=== PATIENT | female | born 1985 | race Caucasian/White ===

== ENCOUNTER 2018-12-30 05:03 | Inpatient (IN) | payer OTHER ==
[~2018-12-30] VITALS: Ht 165.1 cm; Wt 72.6 kg
[~2018-12-30 05:03] MED LIST: PRENATAL TABLE1 EAC1 PO
[2018-12-30] MEDS ORDERED: IRON236 MG PO (05:26)
== END 2019-01-01 11:52 | disposition home or self-care (01) | DRG 807 ==
LOC: LDR 05:03 → SURG-SUITE 09:40 → OB/GYN 01-16 09:32
PROVIDERS: ADMIT Obstetrics & Gynecology Maternal & Fetal Medicine
PROC: 10E0XZZ Delivery of Products of Conception, External Approach (ICD-10-PCS; principal; 2018-12-30)
PROC: 0HQ9XZZ Repair Perineum Skin, External Approach (ICD-10-PCS; 2018-12-30)
PROC: 4A1HXCZ Monitoring of Products of Conception, Cardiac Rate, External Approach (ICD-10-PCS; 2018-12-30)
PROC: 4A033R1 Measurement of Arterial Saturation, Peripheral, Percutaneous Approach (ICD-10-PCS; 2018-12-30)
DX: O70.0 First degree perineal laceration during delivery (principal); Z37.0 Single live birth; Z3A.37 37 weeks gestation of pregnancy

== ENCOUNTER 2019-09-10 14:12 | Emergency (ER) | payer OTHER ==
[~2019-09-10] VITALS: Ht 165.1 cm; Wt 63.5 kg
[~2019-09-10 14:12] MED LIST changes: +IRON236 MG PO
[2019-09-10] MEDS ORDERED: CEFUROXIME500 MG (14:32)
== END 2019-09-10 18:50 | disposition home or self-care (01) ==
LOC: ER 14:12
DX: R20.0 Anesthesia of skin (principal); R07.89 Other chest pain; F41.8 Other specified anxiety disorders; F41.0 Panic disorder [episodic paroxysmal anxiety]

== ENCOUNTER 2019-11-05 13:55 | Emergency (ER) | payer OTHER ==
[~2019-11-05] VITALS: Ht 165.1 cm; Wt 61.2 kg
[~2019-11-05 13:55] MED LIST changes: +CEFUROXIME500 MG
[2019-11-05] MEDS ORDERED: BENADRYL50 MG (14:04)
[2019-11-05] MEDS ORDERED: MEDROL4 MG (14:04)
[2019-11-05] MEDS ORDERED: MOTRIN IB200 M1 (14:05)
== END 2019-11-05 16:26 | disposition home or self-care (01) ==
LOC: ER 13:55
DX: L27.1 Localized skin eruption due to drugs and medicaments taken internally (principal); T38.0X5A Adverse effect of glucocorticoids and synthetic analogues, initial encounter